=== PATIENT | female | born 1995 | race African-American/Black ===

== ENCOUNTER 2020-07-31 17:42 | Emergency (ER) | payer OTHER ==
[~2020-07-31] VITALS: Ht 167.6 cm; Wt 99.8 kg
[2020-07-31 18:33] LABS: ABSOLUTE NEUTROPHILS 1.9 thou/uL (1.4-8.2); BASOPHILS 0.6 % (0.0-2.0); EOSINOPHILS 0.7 % (0.0-3.0); HEMATOCRIT 34.7 % (37.0-47.0); LYMPHOCYTES 37.2 % (24.0-44.0); MCH 29.5 pg (26.0-34.0); MCHC 34.7 g/dL (28.0-37.0); MONOCYTES 10.4 % (1.0-8.0); PLATELET COUNT 233 thou/uL (150-400); POLYS 51.1 % (36.0-66.0); RBC 4.08 mil/uL (4.20-5.00); RDW 14.1 % (10.5-14.5); WBC 3.7 thou/uL (4.0-11.0)
[2020-07-31 18:41] LABS: CALCIUM 8.6 mg/dL (8.5-10.1); CREATININE 1.1 mg/dL (0.6-1.0); POTASSIUM 3.6 mmol/L (3.5-5.1)
[2020-07-31] MEDS ORDERED: PROAIR HFA8.5 GM INH (19:49)
[2020-07-31 20:10] VITALS: BP 124/81
== END 2020-07-31 20:40 | disposition home or self-care (01) ==
LOC: ER 17:42
PROVIDERS: Nurse Practitioner
DX: U07.1 COVID-19 (principal)